=== PATIENT | female | born 1990 | race American Indian/Alaskan Native ===

== ENCOUNTER 2017-07-31 05:39 | Emergency (ER) | payer SELFPAY ==
[2017-07-31 05:48] VITALS: BP 147/86
[2017-07-31] MEDS ORDERED: NORCO 5/325 PO ONE (06:03)
--- NOTE | 2017-07-31 06:09 | Emergency Department Report ---
ED ENT HPI - General Chief complaint: Dental/Oral Stated complaint: TOOTHACHE Time Seen by Provider: 07/31/17 06:03 Source: patient Mode of arrival: Ambulatory Limitations: No Limitations - History of Present Illness Initial comments: 26-year-old female presents with complaint of left upper toothache for approximately 2 weeks. Speaking in full sentences. Denies pus or blood drainage from mouth. Denies fevers or chills. Patient is awake alert and oriented 3. No visible trismus or drooling. Patient states she has cavity which she has not yet had addressed by a dentist. complaint: tooth pain Onset/Timin -: week(s) Location: tooth # 1 - Dental cavity is here Severity scale (0 -10): 6 Quality: aching Consistency: constant Worsens with: eating Context- Dental: poor dental care Associated Symptoms: toothache - Related Data Previous Rx's Medication Instructions Recorded Last Taken Type Acetaminophen/Codeine [Tylenol 1 tab PO Q6H PRN #10 tab 07/31/17 Unknown Rx /Codeine # 3 tab] Amoxicillin [Trimox CAP] 500 mg PO Q8H #30 capsule 07/31/17 Unknown Rx Benzocaine [Orajel Liquid 20%] 1 ml MM Q6HR PRN #1 bottle 07/31/17 Unknown Rx Chlorhexidine Mouthwash [Peridex] 15 ml MM BID #1 bottle 07/31/17 Unknown Rx Ibuprofen [Motrin] 600 mg PO Q8H PRN #20 tablet 07/31/17 Unknown Rx Allergies Allergy/AdvReac Type Severity Reaction Status Date / Time No Known Allergies Allergy Unverified 07/31/17 05:43 ED Dental HPI - General Chief complaint: Dental/Oral Stated complaint: TOOTHACHE Time Seen by Provider: 07/31/17 06:03 Source: patient Mode of arrival: Ambulatory Limitations: No Limitations - Related Data Previous Rx's Medication Instructions Recorded Last Taken Type Acetaminophen/Codeine [Tylenol 1 tab PO Q6H PRN #10 tab 07/31/17 Unknown Rx /Codeine # 3 tab] Amoxicillin [Trimox CAP] 500 mg PO Q8H #30 capsule 07/31/17 Unknown Rx Benzocaine [Orajel Liquid 20%] 1 ml MM Q6HR PRN #1 bottle 07/31/17 Unknown Rx Chlorhexidine Mouthwash [Peridex] 15 ml MM BID #1 bottle 07/31/17 Unknown Rx Ibuprofen [Motrin] 600 mg PO Q8H PRN #20 tablet 07/31/17 Unknown Rx Allergies Allergy/AdvReac Type Severity Reaction Status Date / Time No Known Allergies Allergy Unverified 07/31/17 05:43 ED Review of Systems ROS: Stated complaint: TOOTHACHE Other details as noted in HPI Constitutional: denies: chills, fever Eyes: denies: eye pain, eye discharge, vision change ENT: dental pain. denies: ear pain, throat pain Respiratory: denies: cough, shortness of breath, wheezing Cardiovascular: denies: chest pain, palpitations Endocrine: no symptoms reported Gastrointestinal: denies: abdominal pain, nausea, diarrhea Genitourinary: denies: urgency, dysuria, discharge Musculoskeletal: denies: back pain, joint swelling, arthralgia Skin: denies: rash, lesions Neurological: denies: headache, weakness, paresthesias Psychiatric: denies: anxiety, depression Hematological/Lymphatic: denies: easy bleeding, easy bruising ED Past Medical Hx - Social History Smoking Status: Never Smoker - Medications Home Medications: Home Medications Medication Instructions Recorded Confirmed Last Taken Type Acetaminophen/Codeine [Tylenol 1 tab PO Q6H PRN #10 tab 07/31/17 Unknown Rx /Codeine # 3 tab] Amoxicillin [Trimox CAP] 500 mg PO Q8H #30 capsule 07/31/17 Unknown Rx Benzocaine [Orajel Liquid 20%] 1 ml MM Q6HR PRN #1 bottle 07/31/17 Unknown Rx Chlorhexidine Mouthwash [Peridex] 15 ml MM BID #1 bottle 07/31/17 Unknown Rx Ibuprofen [Motrin] 600 mg PO Q8H PRN #20 tablet 07/31/17 Unknown Rx ED Physical Exam - General Limitations: No Limitations General appearance: alert, in no apparent distress - Head Head exam: Present: atraumatic, normocephalic - Eye Eye exam: Present: normal appearance, PERRL, EOMI - ENT ENT exam: Present: mucous membranes moist - Expanded ENT Exam Expanded Teeth exam: Present: dental caries, dental tenderness # 1 - Dental Tenderness (dental cavity /tenderness here) - Neck Neck exam: Present: normal inspection - Respiratory Respiratory exam: Present: normal lung sounds bilaterally. Absent: respiratory distress - Cardiovascular Cardiovascular Exam: Present: regular rate, normal rhythm. Absent: systolic murmur, diastolic murmur, rubs, gallop - GI/Abdominal GI/Abdominal exam: Present: soft (abdomen soft nontender nondistended), normal bowel sounds - Extremities Exam Extremities exam: Present: normal inspection - Back Exam Back exam: Present: normal inspection - Neurological Exam Neurological exam: Present: alert, oriented X3 - Psychiatric Psychiatric exam: Present: normal affect, normal mood - Skin Skin exam: Present: warm, dry, intact, normal color. Absent: rash ED Course Vital Signs 07/31/17 07/31/17 05:40 05:45 Temperature 98.4 F 98.4 F Pulse Rate 67 67 Respiratory 16 20 Rate Blood Pressure 147/85 147/86 O2 Sat by Pulse 100 100 Oximetry ED Medical Decision Making - Medical Decision Making A/P: dental cavities, toothache 1- Motrin when necessary, amoxicillin ten-day course, Orajel when necessary, Peridex mouthwash daily basis, short course codeine when necessary 2- I provided patient with information for multiple dental clinics to follow up and stressed the importance of dental follow-up as he has multiple cavities that require dental fixation or instrumentation 3- no clinical signs of facial abscess, no Cezar's angina, no induration or cellulitis of floor of mouth or tongue 4- patient able to tolerate by mouth before discharge 5- no signs of facial infection. Advised patient that if he does not take antibiotics with follow-up with a dentist as soon as possible that a can result in potentially serious or dangerous infection to develop in jaw or face. Patient states that he understood these instructions. I advised patient to return to the ED for any persistent unrelenting nausea or vomiting fever or chills or headaches. Critical care attestation.: If time is entered above; I have spent that time in minutes in the direct care of this critically ill patient, excluding procedure time. ED Disposition Clinical Impression: Toothache Disposition: [id number] TO HOME OR SELFCARE Is pt being admited?: No Does the pt Need Aspirin: No Condition: Stable Instructions: Dental Caries (ED), Toothache (ED) Prescriptions: Acetaminophen/Codeine [Tylenol /Codeine # 3 tab] 1 tab PO Q6H PRN #10 tab PRN Reason: Toothache Amoxicillin [Trimox CAP] 500 mg PO Q8H #30 capsule Benzocaine [Orajel Liquid 20%] 1 ml MM Q6HR PRN #1 bottle PRN Reason: Toothache Chlorhexidine Mouthwash [Peridex] 15 ml MM BID #1 bottle Ibuprofen [Motrin] 600 mg PO Q8H PRN #20 tablet PRN Reason: Pain Referrals: [facility] [Outside] - 3-5 Days Forms: Accompanied Note, Work/School Release Form(ED) Time of Disposition: 06:04
== END 2017-07-31 06:17 | disposition home or self-care (01) ==
LOC: ED 05:39
DX: K08.89 Other specified disorders of teeth and supporting structures (principal)
CPT/HCPCS: 99282